=== PATIENT | male | born 1980 | race Caucasian/White ===

== ENCOUNTER 2020-10-03 20:47 | Emergency (ER) | payer OTHER ==
[2020-10-03 21:24] VITALS: BP 123/76; PULSE 58; TEMP 98.1; BMI 27.9
== END 2020-10-04 00:05 | disposition home or self-care (01) ==
LOC: JER 20:47
DX: M54.5 Low back pain (principal)
CPT/HCPCS: 72100-TC-FY; 72131-TC; 99281-25

== ENCOUNTER 2022-05-09 04:33 | Day surgery (SDC) | payer OTHER ==
[2022-05-02 15:43] VITALS: BMI 30.1
[2022-05-09] MEDS ORDERED: BUPIVACAINE HCL/PF 0.75% 10 ML VIAL ONE (07:16)
[2022-05-09] MEDS ORDERED: LIDOCAINE HCL/PF 1% SDV 5ML VIAL ONE (07:17)
[2022-05-09 11:42] VITALS: PULSE 56; RESP 20
[2022-05-09] MEDS ORDERED: IOHEXOL 180 MG/1 ML ML IJ ONE (12:52)
[2022-05-09] MEDS ORDERED: LIDOCAINE 1% P/F 10 MG/ML VIAL PNB ONE (12:52)
[2022-05-09] MEDS ORDERED: BUPIVACAINE HCL/PF 0.75% 10 ML VIAL PNB ONE (12:52)
[2022-05-09 13:32] VITALS: BP 120/80; TEMP 98.2
== END 2022-05-09 13:13 | disposition home or self-care (01) ==
LOC: JASU-SURG 04:33
PROVIDERS: ATTEND Pain Medicine Pain Medicine
PROC: BR16YZZ Fluoroscopy of Lumbar Facet Joint(s) using Other Contrast (ICD-10-PCS; 2022-05-09)
PROC: 3E0T3BZ Introduction of Anesthetic Agent into Peripheral Nerves and Plexi, Percutaneous Approach (ICD-10-PCS; principal; 2022-05-09 12:00)
DX: M47.816 Spondylosis without myelopathy or radiculopathy, lumbar region (principal)
CPT/HCPCS: 76000-TC-FY

== ENCOUNTER 2022-06-20 04:32 | Day surgery (SDC) | payer OTHER ==
[2022-06-19 09:30] VITALS: BMI 30.8
[2022-06-20] MEDS ORDERED: BUPIVACAINE HCL/PF 0.75% 10 ML VIAL ONE (07:36)
[2022-06-20] MEDS ORDERED: LIDOCAINE HCL/PF 1% SDV 5ML VIAL ONE (07:36)
[2022-06-20 09:31] VITALS: RESP 20
[2022-06-20] MEDS ORDERED: BUPIVACAINE HCL/PF 0.75% 10 ML VIAL NR ONE (10:38)
[2022-06-20] MEDS ORDERED: LIDOCAINE HCL 1% PRESERVATIVE FREE - 30ML VIAL IJ ONE (10:38)
[2022-06-20 11:07] VITALS: TEMP 97
[2022-06-20 11:29] VITALS: BP 130/70; PULSE 60
== END 2022-06-20 11:25 | disposition home or self-care (01) ==
LOC: JASU-SURG 04:32
PROVIDERS: ATTEND Pain Medicine Pain Medicine
PROC: 3E0T33Z Introduction of Anti-inflammatory into Peripheral Nerves and Plexi, Percutaneous Approach (ICD-10-PCS; 2022-06-20)
PROC: 3E0T3BZ Introduction of Anesthetic Agent into Peripheral Nerves and Plexi, Percutaneous Approach (ICD-10-PCS; principal; 2022-06-20 10:00)
DX: M47.816 Spondylosis without myelopathy or radiculopathy, lumbar region (principal)
CPT/HCPCS: 76000-TC-FY

== ENCOUNTER 2023-04-24 10:11 | Emergency (ER) | payer OTHER ==
[2023-04-24 10:33] VITALS: BP 140/90; PULSE 88; RESP 17; TEMP 97.8; BMI 30.4
[2023-04-24] MEDS ORDERED: NAPROXEN 500 MG TABLET PO ONE (11:05)
[2023-04-24] MEDS ORDERED: NAPROXEN 500 MG TABLET ONE (11:07)
== END 2023-04-24 11:10 | disposition home or self-care (01) ==
LOC: JERFT 10:11
DX: M79.601 Pain in right arm (principal); S46.211A Strain of muscle, fascia and tendon of other parts of biceps, right arm, initial encounter; X50.0XXA Overexertion from strenuous movement or load, initial encounter; Y99.0 Civilian activity done for income or pay
CPT/HCPCS: 99283-25

== ENCOUNTER 2024-05-10 06:01 | Emergency (ER) | payer OTHER ==
[2024-05-10 06:18] VITALS: BP 130/88; PULSE 82; RESP 20; TEMP 98.4; BMI 29.9
[2024-05-10] MEDS ORDERED: IBUPROFEN 400 MG TABLET (FP) PO ONE (07:22)
[2024-05-10] MEDS: IBUPROFEN 400 MG TABLET (FP) PO ONE (07:29)
== END 2024-05-10 07:41 | disposition home or self-care (01) ==
LOC: JER 06:01
DX: M25.511 Pain in right shoulder (principal)
CPT/HCPCS: 99283-25